=== PATIENT | female | born 1970 | race Caucasian/White ===

== ENCOUNTER 2016-04-08 13:44 | Emergency (ER) | payer MEDICAID ==
[2016-04-08 14:00] VITALS: BP 138/70; PULSE 83; TEMP 98.9; BMI 31.1
--- NOTE | 2016-04-08 14:00 | EDPRACDOC ---
- General Information Chief Complaint: Wrist Pain Stated Complaint: PAIN LT WRIST NO INJURY Time Seen by Provider: 04/08/16 13:54 Home Medications: Home Medications Alprazolam [Xanax] 0.5 mg PO TID PRN 08/27/13 Brimonidine Tartrate [Alphagan-P 0.15% Ophthalmic Solution] 1 drop OU BID Cyclobenzaprine HCl [Flexeril] 5 - 10 mg PO HS 08/27/13 Fish Oil/Dha/Epa [Fish Oil 1,200 mg Fish Oil] 1 each PO DAILY 08/27/13 Fluoxetine HCl [Prozac] 80 mg PO DAILY 08/27/13 Gabapentin [Neurontin] 800 mg PO DAILY 08/27/13 Hydrocodone/Acetaminophen [Lorcet Hd 10-325 mg Tablet] 1 each PO TID 08/27/13 Multivitamin [Daily Vitamin] 1 each PO DAILY 08/27/13 TOPIRAMATE (Anticonvulsant) [Topamax] 25 mg PO BID 08/27/13 Trazodone HCl 100 mg PO HS 08/27/13 Prednisone [Deltasone, Orasone] 40 mg PO DAILY 5 Days 04/08/16 Allergies/Adverse Reactions: Allergies Allergy/AdvReac Type Severity Reaction Status Date / Time aspirin Allergy Bleeding Verified 08/27/13 12:43 NSAIDS (Non-Steroidal Allergy Bleeding Verified 08/27/13 12:43 Anti-Inflamma - History of Present Illness Onset: 2-3 DAYS HPI: PT COMPLAINS OF PAIN IN LEFT WRIST X 2-3 DAYS SINCE HELPING HER BOYFRIEND "PUT UP A FENCE". PT STATES THE PAIN IS SHARP AND SEVERE, WORSE WITH MOVEMENT, RADIATES UP HER ARM, STATES THAT HER FINGERS AND WRIST FEEL "LIKE THEY ARE ASLEEP", PT STATES TAKING HER USUAL HYDROCODONE 10/325 WITHOUT RELIEF. Location: Reports: Dorsal, Ulnar, Radial Dominant Side: Reports: Right Mechanism: Reports: Unknown Circumstances: Reports: Other (AFTER PUTTING UP A FENCE) Tetanus Up To Date?: No Pain Severity: Reports: Severe Associated Signs and Symptoms: Reports: Numbness, Hand Pain, Forearm Pain, Elbow Pain. Denies: Weakness ED Past Medical History - History Reviewed Yes Nurses notes reviewed and agree except as marked - Patient Medical History Psychological History: Reports: Depression, Anxiety Systemic History: Reports: Cancer (CERVICAL) Additional Past Medical History: Chronic Back Pain - Social Medical History Smoking Status: Never smoker EDM Review of Systems - Review of Systems Neurological: Numbness. negative: Dizziness, Weakness Musculoskeletal: Wrist Integumentary: No Symptoms Reported - Physical Exam Constitutional: Alert (Awake), No apparent distress Oriented to: Time, Person, Place Last recorded Vital Signs: Oxygen Pulse Oxygen Saturation O2 Device Oxygen Flow Rate Fraction of Inspired Oxygen ( FIO2) - HEENT Head: Normal ( normocephalic) - Integumentary Skin: Normal, Warm, Dry Lymphatics: Normal (no adenopathy) - Neurologic Memory Impaired: Normal Motor Function: Normal (Normal tone, Pulses 2+ No cyanosis or edema, FROM) Cranial Nerve: Normal (CN II-X11 intact sensation, strength 5/5) Cerebellar: Normal Mood Description: Normal Perception: Normal ED Wrist Problem Exam Wrist Symptoms: Moderate Tenderness. negative: Swelling, Deformity, Limited ROM , [employer] Tenderness Hand Symptoms: Normal. negative: Swelling, Deformity Forearm Symptoms: Normal. negative: Swelling, Deformity Distal Function/Circulation: Normal, Capillary Refill. negative: Motor Deficit , Pulse Deficit, Sensory Deficit - Integumentary Skin: Normal ED Wrist Problem MDM - Differential Diagnosis Differential Diagnosis: Gout, Carpal Tunnel Syndrome Decision Time to Discharge: 14:00 - Departure Disposition: Home Condition: Stable Final Diagnosis: Tendinitis of left wrist Instructions: Tendinitis (ED) Education/Counseling Given To: Patient Education/Counseling Given Regarding: Diagnosis, Treatment, Prognosis, Follow Up Referrals: Rodney Beard MD [Primary Care Provider] - One Week Prescriptions: Prednisone [Deltasone, Orasone] 40 mg PO DAILY 5 Days Additional Instructions: WEAR WRIST SPLINT NEEDED FOR COMFORT, CONTINUE YOUR USUAL MEDICATIONS BEFORE, APPLY WARM COMPRESSES TO YOUR WRIST 20 MINS AT A TIME 4 - 5 TIMES DAILY NEEDED FOR PAIN.
== END 2016-04-08 14:16 | disposition home or self-care (01) ==
LOC: ED 13:44 → EDMC 14:16
DX: M77.9 Enthesopathy, unspecified (principal); M25.532 Pain in left wrist
CPT/HCPCS: 99282